=== PATIENT | male | born 1965 | race Two or more races ===

== ENCOUNTER 2024-04-17 14:35 | Emergency (ER) | payer MEDICAID, OTHER ==
[~2024-04-17] VITALS: Ht 193 cm; Wt 100.0 kg
[2024-04-17 14:35] VITALS: BP 123/81; RESP 18; O2SAT 94
[2024-04-17 14:41] VITALS: PULSE 102
== END 2024-04-17 15:30 | disposition left against medical advice (07) ==
LOC: EDBD 14:35 → ER 14:35
DX: R41.82 Altered mental status, unspecified (principal); Z53.21 Procedure and treatment not carried out due to patient leaving prior to being seen by health care provider
CPT/HCPCS: 93005

== ENCOUNTER 2024-04-17 18:02 | Emergency (ER) | payer MEDICAID, OTHER ==
[~2024-04-17] VITALS: Ht 185.4 cm; Wt 86.5 kg
[2024-04-17 18:24] VITALS: BP 106/69; RESP 15; O2SAT 95
[2024-04-17 18:27] VITALS: PULSE 112
== END 2024-04-17 19:50 | disposition left against medical advice (07) ==
LOC: ER 18:02
DX: M79.10 Myalgia, unspecified site (principal); Z79.899 Other long term (current) drug therapy; Z53.21 Procedure and treatment not carried out due to patient leaving prior to being seen by health care provider
CPT/HCPCS: 93005

== ENCOUNTER 2024-04-17 19:52 | Emergency (ER) | payer MEDICAID ==
[~2024-04-17] VITALS: Ht 185.4 cm; Wt 90.7 kg
[2024-04-17 21:47] LABS: Basophils # (auto) 0 10 ^3/uL (0-0.2); Basophils % (auto) 0.3 % (0.0-2.0); Eosinophils # (auto) 0.4 10 ^3/uL (0-0.8); Eosinophils % (auto) 7.7 % (0.0-7.0); Hematocrit 40.3 % (41.0-53.0); Hemoglobin 13.5 g/dL (13.5-17.5); Lymphocytes # (auto) 2.2 10 ^3/uL (0.4-5.4); Mean Corpuscular Hemoglobin 31.6 pg (28.0-32.0); Mean Corpuscular Hgb Conc. 33.6 g/dL (32.0-36.0); Monocytes # (auto) 0.5 10 ^3/uL (0-1.3); Monocytes % (auto) 9.4 % (0.0-12.0); Neutrophils # (auto) 2.5 10 ^3/uL (1.6-8.6); Neutrophils % (auto) 43.6 % (37.0-80.0); Nucleated Red Blood Cells % 0.2 %; Platelet Count (auto) 327 10^3/uL (140-450); Red Blood Cells 4.28 10^6/uL (4.5-5.90); Red Cell Distribution Width 14.8 % (11.8-14.3); White Blood Cell 5.7 10^3/uL (4.4-10.8)
[2024-04-17 21:58] LABS: Anion Gap 9 (5-15); Carbon Dioxide 24 mmol/L (20-30); Chloride 108 mmol/L (98-107); Potassium 3.7 mmol/L (3.5-5.1); Sodium 141 mmol/L (136-145)
[2024-04-17 21:59] LABS: Calcium 9.8 mg/dL (8.7-10.4)
[2024-04-17 22:04] LABS: BUN/Creatinine Ratio 9.9 (10.0-20.0); Blood Alcohol 54.7 mg/dL (<10); Blood Urea Nitrogen 9 mg/dL (9-23); Glucose 75 mg/dL (74-106)
[2024-04-17 22:05] LABS: Acetaminophen < 2.0 UG/ML (10.0-20.0)
[2024-04-17 22:10] LABS: Salicylate < 3.0 mg/dL (2.8-20.0)
[2024-04-18 07:36] VITALS: BP 120/79; PULSE 82; RESP 16; TEMP 98.3; O2SAT 100
[2024-04-18 09:40] LABS: Urine Bacteria None Seen /hpf (None Seen)
[2024-04-18 09:46] LABS: Urine Blood Negative /uL (Negative); Urine Clarity Clear (Clear); Urine Color Yellow (Yellow); Urine Mucus FEW (None Seen); Urine Protein, UAD TRACE (Negative); Urine Specific Gravity 1.028 (1.001-1.035); Urine Urobilinogen 2 mg/dL (Negative); Urine WBC 6 /hpf (0 - 3); Urine pH 5.5 (5.0-9.0)
[2024-04-18 10:09] LABS: Amphetamine Screen, Urine Pos (NEGATIVE); Barbiturate Scree,Urine Neg (NEGATIVE); Benzodiazephine Screen, Urine Neg (NEGATIVE)
[2024-04-18 10:10] LABS: Cannabinoid Screen, Urine Neg (NEGATIVE); Cocaine Screen, Urine Neg (NEGATIVE); Opiate Scree,Urine Neg (NEGATIVE); Phencyclidine Screen, Urine Neg (NEGATIVE)
== END 2024-04-18 13:55 | disposition left against medical advice (07) ==
LOC: EDUNIT# 19:52 → EDBD 19:52 → ER 19:52
DX: R44.0 Auditory hallucinations (principal)
CPT/HCPCS: 36415; 80048; 80307; 80320; 80329; 81001; 85025

== ENCOUNTER 2024-04-27 20:26 | Emergency (ER) | payer MEDICAID ==
[~2024-04-27] VITALS: Ht 188 cm; Wt 95.0 kg
[2024-04-27 20:40] VITALS: BP 102/64; RESP 20; O2SAT 95
[2024-04-27] MEDS ORDERED: ACETAMINOPHEN 325 MG TAB PO ONE (20:45)
[2024-04-27 20:51] VITALS: PULSE 74
[2024-04-27 21:17] LABS: Basophils # (auto) 0 10 ^3/uL (0-0.2); Basophils % (auto) 0.8 % (0.0-2.0); Eosinophils # (auto) 0.2 10 ^3/uL (0-0.8); Eosinophils % (auto) 4.1 % (0.0-7.0); Hemoglobin 12.7 g/dL (13.5-17.5); Lymphocytes # (auto) 1.8 10 ^3/uL (0.4-5.4); Lymphocytes % (auto) 32.4 % (10.0-50.0); Mean Corpuscular Hemoglobin 31.7 pg (28.0-32.0); Mean Corpuscular Hgb Conc. 33.6 g/dL (32.0-36.0); Mean Corpuscular Volume 94.4 fL (80.0-100.0); Monocytes # (auto) 0.5 10 ^3/uL (0-1.3); Monocytes % (auto) 9.1 % (0.0-12.0); Neutrophils % (auto) 53.6 % (37.0-80.0); Nucleated Red Blood Cells % 0.2 %; Platelet Count (auto) 241 10^3/uL (140-450); Red Blood Cells 4.02 10^6/uL (4.5-5.90); Red Cell Distribution Width 15.7 % (11.8-14.3); White Blood Cell 5.7 10^3/uL (4.4-10.8)
[2024-04-27 21:42] LABS: Chloride 108 mmol/L (98-107); Potassium 3.5 mmol/L (3.5-5.1); Sodium 137 mmol/L (136-145)
[2024-04-27 21:43] LABS: Anion Gap 8 (5-15); Carbon Dioxide 21 mmol/L (20-30)
[2024-04-27 21:44] LABS: Calcium 9.1 mg/dL (8.7-10.4)
[2024-04-27 21:48] LABS: BUN/Creatinine Ratio 8.9 (10.0-20.0); Blood Urea Nitrogen 8 mg/dL (9-23); Glucose 94 mg/dL (74-106)
== END 2024-04-27 23:40 | disposition home or self-care (01) ==
LOC: EDSEX 20:26 → ER 20:26 → EDBD 20:26 → ER 23:40
DX: R07.89 Other chest pain (principal); F15.10 Other stimulant abuse, uncomplicated; F17.210 Nicotine dependence, cigarettes, uncomplicated; F12.10 Cannabis abuse, uncomplicated; E78.5 Hyperlipidemia, unspecified; I10 Essential (primary) hypertension; Z86.73 Personal history of transient ischemic attack (TIA), and cerebral infarction without residual deficits; Z59.00 Homelessness unspecified
CPT/HCPCS: 36415; 71045; 80048; 84484; 85025; 93005

== ENCOUNTER 2024-04-28 09:36 | Emergency (ER) | payer MEDICAID ==
[~2024-04-28] VITALS: Ht 185.4 cm; Wt 90.0 kg
[2024-04-28 10:40] VITALS: BP 121/73; PULSE 96; RESP 16; TEMP 97.6; O2SAT 96
[2024-04-28] MEDS: HYDROcodone-ACET 10/325MG TAB PO ONE (10:42)
== END 2024-04-28 10:55 | disposition home or self-care (01) ==
LOC: ER 09:36
DX: M54.2 Cervicalgia (principal); F17.210 Nicotine dependence, cigarettes, uncomplicated; F12.10 Cannabis abuse, uncomplicated; F15.10 Other stimulant abuse, uncomplicated; E78.5 Hyperlipidemia, unspecified; I10 Essential (primary) hypertension; Z86.73 Personal history of transient ischemic attack (TIA), and cerebral infarction without residual deficits; Z59.00 Homelessness unspecified